=== PATIENT | male | born 1955 | race Caucasian/White ===

== ENCOUNTER 2020-04-04 16:57 | Emergency (ER) | payer OTHER ==
[~2020-04-04] VITALS: Ht 177.8 cm; Wt 93.0 kg
[~2020-04-04 16:57] MED LIST: ALBU90OI INH; CARV3.125 PO; CARV6.25 PO; CEPH500 PO; CODGUAEL PO; CYCL10 PO; LISI5 PO; Norco 5-325 Ta1 EACH PO; OXYACE7.5T PO; PSEU30 PO; RXOXYACE PO; SILDENAFIL CIT100 MG; TAMS.4ER PO
[2020-04-04 18:03] LABS: BASOPHILS ABSOLUTE AUTO 0.03 K/mm3 (0.00-0.23); BASOPHILS PERCENT AUTO 0 % (0-2); EOSINOPHILS PERCENT AUTO 0 % (0-6); Hematocrit 43.2 % (37.0-53.0); Hemoglobin 14.7 g/dL (13.5-17.5); IMMATURE GRAN ABSOLUTE AUTO 0.03 K/mm3 (0.00-0.10); IMMATURE GRAN PERCENT AUTO 0 % (0-1); LYMPHOCYTES PERCENT AUTO 8 % (21-46); MONOCYTES ABSOLUTE AUTO 1.24 K/mm3 (0.16-1.47); MONOCYTES PERCENT AUTO 11 % (4-13); Mean Corpuscular HGB 31.5 pg (26.0-34.0); Mean Corpuscular Volume 93 fL (80-100); Mean Platelet Volume 10.6 fL (9.1-12.4); NEUTROPHILS ABSOLUTE AUTO 9.42 K/mm3 (1.96-9.15); NEUTROPHILS PERCENT AUTO 81 % (41-73); Platelet Count 156 K/mm3 (150-400); RDW Coefficient Variation 12.2 % (11.7-14.2); RDW Standard Deviation 42.1 fL (35.1-46.3); Red Blood Cell Count 4.66 M/mm3 (4.30-5.90); White Blood Cell Count 11.62 K/mm3 (4.00-11.30)
[2020-04-04 18:25] LABS: Alanine Aminotransfer (ALT/SGP 21 U/L (12-78); Albumin, Blood 4.1 g/dL (3.4-5.0); Albumin/Globulin Ratio 1.2 (0.8-1.8); Alk Phos 58 U/L (50-136); Anion Gap 5 mmol/L (6-16); Aspartate Aminotrans (AST/SGOT 13 U/L (12-37); Bilirubin, Total 1.1 mg/dL (0.1-1.0); Blood Urea Nitrogen 20 mg/dL (8-24); Bun/Creatinine Ratio 20.1 (12.0-20.0); CO2, Blood 25 mmol/L (21-32); Calcium, Blood 9.3 mg/dL (8.5-10.1); Chloride, Blood 106 mmol/L (98-108); Creatinine, Blood 0.99 mg/dL (0.60-1.20); Globulin, Blood 3.3 g/dL (2.2-4.0); Glomerular Filtration Rate >60 (60-); Glucose, Blood 107 mg/dL (70-99); Potassium, Blood 4.2 mmol/L (3.5-5.5); Sodium, Blood 136 mmol/L (136-145); Total Protein, Blood 7.4 g/dL (6.4-8.2)
[2020-04-04 20:15] LABS: Source, Urine Clean Catch
[2020-04-04 20:19] LABS: Appearance, Urine Clear (Clear); Bilirubin, Urine Neg (Neg); Blood, Urine 5+ (Neg); Color, Urine Amber (P-Yellow); Glucose Qualitative, Urine Neg (Neg); Ketones, Urine 3+ (Neg); Leukocyte Esterase, Urine 1+ (Neg); Nitrite, Urine Neg (Neg); Protein, Urine 2+ (Neg); Urobilinogen, Urine NORM (Normal); pH, Urine 6.5 (5.0-8.0)
[2020-04-04 20:26] LABS: Red Blood Cells, Urine 50-100 /hpf (0-2)
[2020-04-04 20:27] LABS: Bacteria Few /hpf; Squamous Epithelial Cells Not Seen /hpf (Few)
[2020-04-04] MEDS ORDERED: CEPH500 PO (20:36)
== END 2020-04-04 20:40 | disposition home or self-care (01) ==
LOC: ER 16:57
PROVIDERS: Physician Assistant
DX: N39.0 Urinary tract infection, site not specified (principal); Z88.1 Allergy status to other antibiotic agents; Z88.0 Allergy status to penicillin; Z79.899 Other long term (current) drug therapy
CPT/HCPCS: 36415; 74177; 80053; 81001; 83605; 83690; 85025; 87086; 99284-25; A9270-GY; Q9967

== ENCOUNTER 2020-04-20 06:45 | Emergency (ER) | payer OTHER ==
[~2020-04-20] VITALS: Ht 177.8 cm; Wt 90.7 kg
== END 2020-04-20 08:28 | disposition home or self-care (01) ==
LOC: ER 06:45
DX: L23.7 Allergic contact dermatitis due to plants, except food (principal); I25.2 Old myocardial infarction; Z88.1 Allergy status to other antibiotic agents; Z88.0 Allergy status to penicillin; Z95.5 Presence of coronary angioplasty implant and graft; Z91.09 Other allergy status, other than to drugs and biological substances; Z79.899 Other long term (current) drug therapy
CPT/HCPCS: 96372; 99282; J3301

== ENCOUNTER 2020-06-08 12:48 | Emergency (ER) | payer OTHER ==
[~2020-06-08] VITALS: Ht 177.8 cm; Wt 89.8 kg
[2020-06-08 13:40] LABS: Source, Urine Clean Catch
[2020-06-08 13:45] LABS: Appearance, Urine Turbid (Clear); Blood, Urine 3+ (Neg); Glucose Qualitative, Urine Neg (Neg); Ketones, Urine Neg (Neg); Leukocyte Esterase, Urine 3+ (Neg); Nitrite, Urine Pos (Neg); Protein, Urine 3+ (Neg); Specific Gravity, Urine 1.025 (1.003-1.022); Urobilinogen, Urine 3+ (Normal)
[2020-06-08 13:54] LABS: Bilirubin, Urine 3+ (Neg)
[2020-06-08 13:55] LABS: Color, Urine Orange (P-Yellow)
[2020-06-08 13:56] LABS: White Blood Cells, Urine 25-50 /hpf (0-5)
[2020-06-08 13:57] LABS: Bacteria Mod /hpf; Hyaline Casts Rare /lpf (0-2); Mucus Light (0-Heavy); Squamous Epithelial Cells Rare /hpf (Few)
[2020-06-08 14:00] LABS: BASOPHILS ABSOLUTE AUTO 0.04 K/mm3 (0.00-0.23); BASOPHILS PERCENT AUTO 0 % (0-2); EOSINOPHILS ABSOLUTE AUTO 0.06 K/mm3 (0.00-0.68); EOSINOPHILS PERCENT AUTO 1 % (0-6); Hematocrit 37.1 % (37.0-53.0); Hemoglobin 12.1 g/dL (13.5-17.5); IMMATURE GRAN PERCENT AUTO 1 % (0-1); LYMPHOCYTES ABSOLUTE AUTO 0.67 K/mm3 (0.84-5.20); LYMPHOCYTES PERCENT AUTO 5 % (21-46); MONOCYTES ABSOLUTE AUTO 0.09 K/mm3 (0.16-1.47); MONOCYTES PERCENT AUTO 1 % (4-13); Mean Corpuscular HGB 31.6 pg (26.0-34.0); Mean Corpuscular HGB Conc 32.6 g/dL (31.5-36.5); Mean Corpuscular Volume 97 fL (80-100); Mean Platelet Volume 10.3 fL (9.1-12.4); NEUTROPHILS ABSOLUTE AUTO 12.08 K/mm3 (1.96-9.15); NEUTROPHILS PERCENT AUTO 93 % (41-73); Platelet Count 203 K/mm3 (150-400); RDW Standard Deviation 46.3 fL (35.1-46.3); Red Blood Cell Count 3.83 M/mm3 (4.30-5.90); White Blood Cell Count 13.04 K/mm3 (4.00-11.30)
[2020-06-08 14:18] LABS: Alanine Aminotransfer (ALT/SGP 19 U/L (12-78); Albumin, Blood 3.7 g/dL (3.4-5.0); Albumin/Globulin Ratio 1.2 (0.8-1.8); Alk Phos 66 U/L (50-136); Anion Gap 6 mmol/L (6-16); Aspartate Aminotrans (AST/SGOT 23 U/L (12-37); Bilirubin, Total 0.8 mg/dL (0.1-1.0); Blood Urea Nitrogen 25 mg/dL (8-24); CO2, Blood 22 mmol/L (21-32); Calcium, Blood 8.9 mg/dL (8.5-10.1); Chloride, Blood 108 mmol/L (98-108); Creatinine, Blood 1.19 mg/dL (0.60-1.20); Globulin, Blood 3.1 g/dL (2.2-4.0); Glomerular Filtration Rate >60 (60-); Glucose, Blood 96 mg/dL (70-99); Potassium, Blood 4.7 mmol/L (3.5-5.5); Sodium, Blood 136 mmol/L (136-145); Total Protein, Blood 6.8 g/dL (6.4-8.2)
[2020-06-08] MEDS ORDERED: Bactrim Ds Tab1 EACH PO (16:01)
== END 2020-06-08 16:09 | disposition home or self-care (01) ==
LOC: ER 12:48
PROVIDERS: Emergency Medicine
DX: N39.0 Urinary tract infection, site not specified (principal); R09.02 Hypoxemia; Z79.899 Other long term (current) drug therapy
CPT/HCPCS: 36415; 71045; 80053; 81001; 83605; 85025; 87077; 87086; 87186; 93005; 93010; 99284-25; A9270; A9270-GY; J7030

== ENCOUNTER → 2021-04-07 | Outpatient (CLI) | payer OTHER ==
[~2021-04-07] MED LIST changes: +Bactrim Ds Tab1 EACH PO
[2021-04-07 16:37] LABS: Source, Urine Clean Catch
[2021-04-07 19:00] LABS: Appearance, Urine Clear (Clear); Bilirubin, Urine Neg (Neg); Blood, Urine Neg (Neg); Color, Urine Yellow (P-Yellow); Glucose Qualitative, Urine Neg (Neg); Ketones, Urine Neg (Neg); Leukocyte Esterase, Urine 1+ (Neg); Nitrite, Urine Neg (Neg); Protein, Urine Neg (Neg); Urobilinogen, Urine NORM (Normal)
[2021-04-07 19:10] LABS: Bacteria Few /hpf; Squamous Epithelial Cells Rare /hpf (Few)
[2021-04-07 19:11] LABS: Hyaline Casts 0-2 /lpf (0-2)
== END | disposition home or self-care (01) ==
LOC: LAB 16:34 → LAB SHORT 16:34
PROVIDERS: Urology
DX: N39.0 Urinary tract infection, site not specified (principal)
CPT/HCPCS: 81001; 87086

== ENCOUNTER 2024-06-01 10:58 | Inpatient (IN) | payer OTHER ==
[~2024-06-01] VITALS: Ht 172.7 cm; Wt 178.0 kg
[2024-06-01] MEDS ORDERED: ESCI20 PO (11:25)
[2024-06-01 11:26] LABS: BASOPHILS ABSOLUTE AUTO 0.03 K/mm3 (0.00-0.23); BASOPHILS PERCENT AUTO 1 % (0-2); EOSINOPHILS ABSOLUTE AUTO 0.29 K/mm3 (0.00-0.68); EOSINOPHILS PERCENT AUTO 5 % (0-6); Hematocrit 41.7 % (37.0-53.0); Hemoglobin 14.8 g/dL (13.5-17.5); IMMATURE GRAN ABSOLUTE AUTO 0.01 K/mm3 (0.00-0.10); IMMATURE GRAN PERCENT AUTO 0 % (0-1); LYMPHOCYTES ABSOLUTE AUTO 1.55 K/mm3 (0.84-5.20); LYMPHOCYTES PERCENT AUTO 25 % (21-46); MONOCYTES ABSOLUTE AUTO 0.54 K/mm3 (0.16-1.47); MONOCYTES PERCENT AUTO 9 % (4-13); Mean Corpuscular HGB 32.7 pg (26.0-34.0); Mean Corpuscular HGB Conc 35.5 g/dL (31.5-36.5); Mean Corpuscular Volume 92 fL (80-100); Mean Platelet Volume 10.1 fL (9.1-12.4); NEUTROPHILS ABSOLUTE AUTO 3.72 K/mm3 (1.96-9.15); NEUTROPHILS PERCENT AUTO 61 % (41-73); Platelet Count 187 K/mm3 (150-400); RDW Standard Deviation 41.3 fL (35.1-46.3); Red Blood Cell Count 4.52 M/mm3 (4.30-5.90); White Blood Cell Count 6.14 K/mm3 (4.00-11.30)
[2024-06-01 11:38] LABS: Albumin/Globulin Ratio 1.3 (0.8-1.8); Bilirubin, Total 0.9 mg/dL (0.1-1.0); Bun/Creatinine Ratio 15.8 (12.0-20.0); Calcium, Blood 9.2 mg/dL (8.5-10.1); Creatinine, Blood 1.33 mg/dL (0.60-1.20); Potassium, Blood 4.2 mmol/L (3.5-5.5)
[2024-06-01] MEDS ORDERED: Aspirin 325 MG Tab PO ONE (12:15)
[2024-06-01] MEDS ORDERED: NS 1,000 ML IV SCH (12:15)
[2024-06-01] MEDS ORDERED: FLU VACC TS2024-25(6MOS UP)/PF 45 MCG/0.5 ML SYRINGE IM SCH (13:50)
[2024-06-01 16:40] VITALS: BP 111/63
--- NOTE | 2024-06-01 17:59 | NUR ---
ADMIT/SHIFT NOTE: PT A/OX4 ABLE TO MAKE HIS NEEDS KNOWN. HE IS ON RA, AND IND WITH HIS ADLS. HE IS ON TELE IN SINUS WITH FREQUENT PACS AND PVS. PT DENIES CHEST PAIN/PRESSURE SINCE ARRIVAL ON UNIT. PLAN IS FOR STRESS TEST IN AM. PT NPO
[2024-06-01 19:15] VITALS: BP 130/75
[2024-06-01] MEDS ORDERED: Nitroglycerin 0.4 MG SUBL SL PRN (19:50)
[2024-06-01] MEDS ORDERED: FentaNYL Citrate 50 MCG/ML 2 ML Injection IV PRN (19:50)
[2024-06-01] MEDS ORDERED: Atorvastatin 40 MG Tab PO SCH (20:00)
[2024-06-01] MEDS ORDERED: Clopidogrel Bisulfate 300 MG Cap PO ONE (20:00)
--- NOTE | 2024-06-01 20:09 | NUR ---
LAB NOTIFIED CRITICAL TROPONIN 651 TRENDING UPWARDS. PT ASSESSED ASYMPTOMATIC, VSS, TELE SINUS RHYTHM/1DHB 60'S. HOSPITALIST NOTIFIED AND HEPARIN DRIP ORDERED AND STRESS TEST FOR TOMORROW D/C. PT WILL STILL BE NPO IF TROPONIN START TRENDING DOWNWARDS. HOSPITALSIT ALSO GAVE AUTHORIZATION TO TRANSFER PT TO PCU FOR HIGHER LEVEL OF CARE IF THEY BECOME SYMPTOMATIC OR CLINICAL JUDGEMENT.
[2024-06-01 20:31] LABS: Anti-Xa UFH, PHA Monitoring <0.10 IU/mL; International Normalized Ratio 1.02; Prothrombin Time Results 10.9 Sec (9.7-11.5)
[2024-06-01] MEDS ORDERED: Dose Adjust by Pharmacy XX STA (20:40)
[2024-06-01] MEDS ORDERED: Heparin Sodium,Porcine/0.5 NS 500 ML IV SCH (20:40)
[2024-06-01] MEDS ORDERED: Heparin Sodium 5000 Units/ML 1ML MDV IV ONE (20:40)
[2024-06-01] MEDS ORDERED: Citalopram Hydrobromide 20 MG Tab PO SCH (21:00)
[2024-06-01 23:10] VITALS: BP 118/71
--- NOTE | 2024-06-01 23:42 | NUR ---
NOTIFIED BY LAB PT TROPONIN 1133 STILL INCREASING. PT ASYMPTOMATIC, VSS, TELE SR/BBB @ 62 BPM. COW PUNCHER AND HOSPITALIST NOTIFIED AND CARDIOLOGY CONSULT PUT IN AND ANWERING SERVICE CALLED. PT REMAINS ON HEPARIN DRIP.
[2024-06-02] VITALS (9 sets, daily range): BP systolic 106–127; BP diastolic 51–108
--- NOTE | 2024-06-02 02:04 | NUR ---
HOSPITALISTS NOTIFIED OF UPTRENDING IN TROPONINS, HEPARIN DRIP INITIATED ALONG WITH CARDIOLOGY CONSULT FOR AM. NO FURTHER TROPONIN DRAWS UNLESS PT BECOMES SYMPTOMATIC.
[2024-06-02] MEDS ORDERED: Dose Adjust by Pharmacy XX STA ×3 (03:21→19:18)
--- NOTE | 2024-06-02 04:38 | NUR ---
SHIFT SUMMARY NOC PT A/O X 4. PLEASANT AND COOOPERATIVE WITH CARE. ADMIT FOR CP WITH UPWARDS TRENDING TROPONINS 19, 193, 651, 1133. PT VSS AND ASYMPTOMATIC. ON TELE SINUS RHYTHM/BBB IN 60'S. HEPARIN DRIP INITIATED AFTER TROPONIN OF 651 AND STRESS TEST CANCELLED FOR 06/02/24. PT HAS CARDIOLOGY CONSULT WITH DR MARTIN CALLED IN FOR AM TODAY TO EVALUATE FURTHER INTERVENTIONS, NPO STATUS REMAINS. PT CURRENTLY RESTING WITH BED IN LOWEST POSITION, AND CALL LIGHT WITHIN REACH.
[2024-06-02 06:24] LABS: BASOPHILS ABSOLUTE AUTO 0.05 K/mm3 (0.00-0.23); BASOPHILS PERCENT AUTO 1 % (0-2); EOSINOPHILS PERCENT AUTO 5 % (0-6); Hematocrit 36.8 % (37.0-53.0); Hemoglobin 12.9 g/dL (13.5-17.5); IMMATURE GRAN ABSOLUTE AUTO 0.01 K/mm3 (0.00-0.10); IMMATURE GRAN PERCENT AUTO 0 % (0-1); LYMPHOCYTES ABSOLUTE AUTO 2.04 K/mm3 (0.84-5.20); LYMPHOCYTES PERCENT AUTO 34 % (21-46); MONOCYTES ABSOLUTE AUTO 0.62 K/mm3 (0.16-1.47); MONOCYTES PERCENT AUTO 10 % (4-13); Mean Corpuscular HGB 32.4 pg (26.0-34.0); Mean Corpuscular HGB Conc 35.1 g/dL (31.5-36.5); Mean Corpuscular Volume 93 fL (80-100); Mean Platelet Volume 10.5 fL (9.1-12.4); NEUTROPHILS ABSOLUTE AUTO 3.07 K/mm3 (1.96-9.15); NEUTROPHILS PERCENT AUTO 50 % (41-73); Platelet Count 143 K/mm3 (150-400); RDW Coefficient Variation 12.1 % (11.7-14.2); RDW Standard Deviation 41.7 fL (35.1-46.3); Red Blood Cell Count 3.98 M/mm3 (4.30-5.90); White Blood Cell Count 6.09 K/mm3 (4.00-11.30)
[2024-06-02 07:00] LABS: Calcium, Blood 8.7 mg/dL (8.5-10.1); Potassium, Blood 3.8 mmol/L (3.5-5.5)
[2024-06-02] MEDS ORDERED: Carvedilol 6.25 MG Tab PO SCH (08:00)
[2024-06-02] MEDS ORDERED: Aspirin 81 MG Chew PO SCH (09:00)
[2024-06-02] MEDS ORDERED: Clopidogrel Bisulfate 75 MG Tab PO SCH (09:00)
[2024-06-02] MEDS ORDERED: Citalopram Hydrobromide 20 MG Tab PO SCH (09:00)
[2024-06-02] MEDS ORDERED: Lisinopril 5 MG Tab PO SCH (09:00)
[2024-06-02] MEDS ORDERED: Enoxaparin 40 MG/0.4 ML SYR SC SCH (09:00)
[2024-06-02] MEDS ORDERED: NS 250 ML IV ONE (11:16)
[2024-06-02] MEDS ORDERED: Verapamil HCL 2.5 MG/ML 2ML Injection ONE (11:16)
[2024-06-02] MEDS ORDERED: Heparin Sodium 1000 Units/ML 10ML MDV ONE (11:16)
[2024-06-02] MEDS ORDERED: Nitroglycerin 2 MG/20 ML BTL ONE (11:16)
[2024-06-02] MEDS ORDERED: NS 1,000 ML IV ONE ×2 (11:16→11:27)
[2024-06-02] MEDS ORDERED: FentaNYL Citrate 50 MCG/ML 2 ML Injection ONE (11:26)
[2024-06-02] MEDS ORDERED: Midazolam HCl 1MG / ML 2ML Vial ONE (11:26)
--- NOTE | 2024-06-02 13:37 | NUR ---
PT TO PCU AFTER OUTPATIENT PROGRAM COORDINATOR. DR. COBB TO BEDSIDE TO UPDATE PRIMARY RN AND FAMILY ON PLAN OF CARE. PLAN IS TO COBRA FOR CABG. PT RESTING COMFORTABLY NOW WITH NO QUESTIONS OR CONCERNS. CONTINUING CARE
--- NOTE | 2024-06-02 15:24 | NUR ---
ATTEMPTED TO DEFLATE TR BAND AT 1445, BLEEDING OCCURED, AIR WAS REPLACED. CONTINUING TO MONITOR
--- NOTE | 2024-06-02 19:15 | NUR ---
SHIFT NOTE: TR BAND FULLY RECOVERED, SITE IS FREE FROM REDNESS, TENDERNESS, AND SWELLING. PULSES PRESENT AND SITE COVERED WITH TEGADERM. PT A/OX4 ABLE TO MAKE NEEDS KNOWN USING CALL LIGHT. HEPARIN STARTED PER SEP. PT WAITING TX FOR CABG. BEDSIDE SHIFT REPORT GIVEN TO CUPROUS CHLORIDE HELPER RN
[2024-06-03 01:12] VITALS: BP 128/85
[2024-06-03] MEDS ORDERED: Melatonin 5 MG Tablet PO ONE (01:47)
[2024-06-03 01:52] LABS: BASOPHILS ABSOLUTE AUTO 0.03 K/mm3 (0.00-0.23); BASOPHILS PERCENT AUTO 0 % (0-2); EOSINOPHILS ABSOLUTE AUTO 0.29 K/mm3 (0.00-0.68); EOSINOPHILS PERCENT AUTO 4 % (0-6); Hematocrit 39.1 % (37.0-53.0); IMMATURE GRAN ABSOLUTE AUTO 0.01 K/mm3 (0.00-0.10); IMMATURE GRAN PERCENT AUTO 0 % (0-1); LYMPHOCYTES ABSOLUTE AUTO 2.35 K/mm3 (0.84-5.20); LYMPHOCYTES PERCENT AUTO 30 % (21-46); MONOCYTES ABSOLUTE AUTO 0.67 K/mm3 (0.16-1.47); MONOCYTES PERCENT AUTO 9 % (4-13); Mean Corpuscular HGB 33.1 pg (26.0-34.0); Mean Corpuscular HGB Conc 35.8 g/dL (31.5-36.5); Mean Corpuscular Volume 92 fL (80-100); Mean Platelet Volume 10.6 fL (9.1-12.4); NEUTROPHILS ABSOLUTE AUTO 4.41 K/mm3 (1.96-9.15); NEUTROPHILS PERCENT AUTO 57 % (41-73); Platelet Count 156 K/mm3 (150-400); RDW Coefficient Variation 12.3 % (11.7-14.2); RDW Standard Deviation 41.5 fL (35.1-46.3); Red Blood Cell Count 4.23 M/mm3 (4.30-5.90); White Blood Cell Count 7.76 K/mm3 (4.00-11.30)
[2024-06-03] MEDS ORDERED: Dose Adjust by Pharmacy XX STA ×2 (01:57→08:38)
[2024-06-03 02:01] LABS: Calcium, Blood 9.3 mg/dL (8.5-10.1); Creatinine, Blood 1.05 mg/dL (0.60-1.20)
[2024-06-03 04:59] VITALS: BP 94/54
--- NOTE | 2024-06-03 06:18 | NUR ---
SHIFT SUMMARY NEURO: WNL CARDIAC: COBRA TX PLANNED. HEPARIN GTT RUNNING. RIGHT RADIAL SITE WITHOUT BLEEDING OR HEMATOMA PULSES PRESENT. LUNGS: WNL GI/: WNL ONE TIME DOSE OF MELATONIN GIVEN FOR SLEEP
[2024-06-03 08:39] VITALS: BP 132/101
[2024-06-03] MEDS ORDERED: Rosuvastatin Calcium 10 MG Tab PO SCH (09:00)
[2024-06-03 12:01] VITALS: BP 102/69
[2024-06-03 13:57] VITALS: BP 102/69
--- NOTE | 2024-06-03 14:35 | NUR ---
SHIFT SUMMARY/TRANSFER NOTE: THIS RN ASSUMED CARE OF PT AT APPROX 0700. PT A/OX4 T/O SHIFT, ABLE TO CALL APPROPRIATELY & COMMUNICATE NEEDS W/ STAFF. HR 70-80'S, SINUS RHYTHM ON TELE. SBP 100-130'S, DENIES CHEST PAIN/PRESSURE. SPO2 >90% ON ROOM AIR, RESPIRATIONS EVEN & UNLABORED. AFEBRILE. R RADIAL SITE INTACT W/ CLEAR DRESSING IN PLACE. NO BLEEDING, BRUISING, OR HEMATOMA FORMATION. INDEPENDENT TO BATHROOM TO VOID. ABLE TO COMPLETE ADL'S (SHAVING, HAIR WASHING, ETC) INDEPENDENTLY. TOLERATING PO INTAKE WELL. SPOUSE AT BEDSIDE. HEPARIN GTT INFUSING PER EMAR, MANAGED BY PHARMACY. PT TRANSFERRED TO [facility] VIA EMS AT APPROX 1430. PT ABLE TO WALK FROM CHAIR TO GURNEY INDEPENDENTLY. PERSONAL BELONGINGS TRANSFERRED W/ PT, SPOUSE TO TAKE SOME BELONGINGS HOME WELL. NO OTHER NEEDS AT TIME OF TRANSFER. REPORT TO REHANA SHEIKH AT [facility] TO ASSUME CARE OF PT ON ARRIVAL.
== END 2024-06-03 13:00 | disposition short-term general hospital (02) | DRG 281 ==
LOC: ER 10:58 → MEDS 10:59 → ERHOLD 10:59 → MEDS 16:21 → PCU 06-02 11:44
PROVIDERS: Internal Medicine; Student in an Organized Health Care Education/Training Program; ADMIT Internal Medicine
PROC: B2111ZZ Fluoroscopy of Multiple Coronary Arteries using Low Osmolar Contrast (ICD-10-PCS; principal; 2024-06-02)
PROC: 4A023N7 Measurement of Cardiac Sampling and Pressure, Left Heart, Percutaneous Approach (ICD-10-PCS; 2024-06-02)
DX: I21.4 Non-ST elevation (NSTEMI) myocardial infarction (principal); I50.22 Chronic systolic (congestive) heart failure; F41.9 Anxiety disorder, unspecified; I44.7 Left bundle-branch block, unspecified; I25.10 Atherosclerotic heart disease of native coronary artery without angina pectoris; I25.5 Ischemic cardiomyopathy; I11.0 Hypertensive heart disease with heart failure; E78.5 Hyperlipidemia, unspecified; R41.3 Other amnesia; I25.2 Old myocardial infarction; Z95.5 Presence of coronary angioplasty implant and graft; Z88.1 Allergy status to other antibiotic agents; Z79.899 Other long term (current) drug therapy
CPT/HCPCS: 36415; 71046; 76937; 78451; 80048; 80053; 83880; 84484; 85025; 85347; 85379; 85520; 85610; 85730; 92978; 93005; 93010; 93306; 93454; 93458; 96360; 96361; 99152; 99153; 99285-25; A9270; A9500; C1753; C1769; C1887; C1894; G0378; J1644; J2250; J3010; J7030; J7050; Q9967